=== PATIENT | male | born 1965 | race Caucasian/White ===

== ENCOUNTER 2016-07-10 09:06 | Emergency (ER) | payer MEDICARE ==
[2016-07-10] MEDS ORDERED: Nitroglycerin 2% Ointment 1 INCH/1 GM Packet ONE (09:28)
[2016-07-10] MEDS ORDERED: Ondansetron HCl/PF 4 MG/2 ML Vial ONE (09:28)
[2016-07-10 09:33] LABS: #Lymphocytes 0.6 thou/uL (1.20-3.40); #Monocytes 0.4 thou/uL (0.11-0.59); #Neutrophils 9.6 thou/uL (1.40-6.50); %Basophils 0.4 % (0.0-1.0); %Eosinophils 0.1 % (0.0-10.0); %Lymphocytes 5.6 % (21.0-51.0); %Monocytes 3.5 % (0.0-10.0); %Neutrophils 90.5 % (42.0-75.0); Hemoglobin 14.5 g/dL (14.0-18.0); Mean Corpuscular HGB CONC 33.6 g/dL (32.0-36.0); Mean Corpuscular Hemoglobin 30.3 pg (27.0-31.0); Mean Corpuscular Volume 90.1 fl (80.0-94.0); Mean Platelet Volume 7.3 fL (7.4-10.4); Platelet Count 182 thou/uL (130-400); RBC Distribution Width 14.4 % (11.5-14.5); Red Blood Cell (RBC) Count 4.79 mill/uL (4.70-6.10); White Blood Cell (WBC) Count 10.6 thou/uL (4.8-10.8)
[2016-07-10 09:49] LABS: CKMB 2.2 ng/mL (0-6.6); Troponin I Less than 0.010 ng/mL (< 0.028)
[2016-07-10 09:51] LABS: ALT (SGPT) 29 U/L (0-55); AST (SGOT) 22 U/L (5-34); Albumin 4.6 g/dL (3.5-5.0); Alkaline Phosphatase 70 U/L (40-150); Anion Gap 15 mmol/L (10-20); BUN (Urea Nitrogen) 11 mg/dL (8.4-25.7); Bilirubin, Total 0.5 mg/dL (0.2-1.2); Calc. Creatinine Clearance 0 mL/min (70-130); Calcium 9.4 mg/dL (7.8-10.44); Carbon Dioxide 20 mmol/L (22-29); Chloride 109 mmol/L (98-107); Estimated GFR-MDRD 75; Globulin 2.6 g/dL (2.4-3.5); Glucose 147 mg/dL (70-105); Potassium 3.2 mmol/L (3.5-5.1); Protein, Total 7.2 g/dL (6.0-8.3); Sodium 141 mmol/L (136-145)
--- NOTE | 2016-07-10 09:59 | RAD ---
CHEST TWO VIEW: History: Chest pain. Comparison: 05-02-16 FINDINGS: Heart size is upper limits of normal. There is callus formation along the right posterior 8th rib s uggesting healing fracture. Mild spondylotic changes of the thoracic spine. The aorta is tortuous. IMPRESSION: 1. No acute intrathoracic abnormality. 2. Callus formation along the right posterior 8th rib similar to the CT aortic dissection protocol study 05-02-16. 3. Tortuous aorta. POS: OFF
--- NOTE | 2016-07-10 11:04 | ERRECORD ---
[facility] EMERGENCY RECORD HPI CHEST PAIN CHIEF COMPLAINT: Patient presents for evaluation of chest pain, ongoing. (09:17 ABUS) HISTORIAN: History provided by patient, 51 yr old M with PMH of HTN and BPH, seizures, aneurysm who comes in with reports of SS NR chest discomfort and elevated BP despite taking his medications last night and today. Started at 5-6 am and was rated at 8/10 and now is 6/10. Also reports nausea and 1 episode of vomiting and SOB that is not normal for him. Denies any prior smoking, cardiac stress testing. (09:17 ABUS) LOCATION: Symptoms are localized, most severe in substernal area, No radiation of pain. (09:17 ABUS) QUALITY: Pain is dull in nature, described as pressure-like. (09:17 ABUS) SEVERITY: Currently symptoms are moderate, Current severity of pain rated as 6/10. (09:17 ABUS) TIME COURSE: Sudden onset of symptoms, Symptoms are improving, are constant. (09:17 ABUS) ASSOCIATED WITH: No associated symptoms. (09:17 ABUS) EXACERBATED BY: Patient's condition exacerbated by nothing. (09:17 ABUS) RELIEVED BY: Patient's condition relieved by nothing. (09:17 ABUS) RISK FACTORS: Coronary artery disease risk factors, include hypertension. (09:17 ABUS) HEART SCORE: Patients history is Moderately Suspicious (1), Patients ECG is normal (0), Patients age is greater than 45 and less than 65 (1), Patient has 1 or 2 risk factors (1), Patients Troponin is equal to or less than 1 times the normal limit (0), Total 3. (10:03 ABUS) ROS (09:20 ABUS) CONSTITUTIONAL: Historian denies chills, denies fever. EYES: Negative eye review of systems, Historian denies eye pain, denies eye discharge, denies vision changes. ENT: Negative ears, nose, throat review of systems, Historian denies rhinorrhea, denies sore throat. CARDIOVASCULAR: Negative cardiovascular review of systems, Historian denies chest pain, denies palpitations. RESPIRATORY: Negative respiratory review of systems, Historian denies cough, denies shortness of breath. GI: Negative gastrointestinal review of systems, Historian denies abdominal pain, denies constipation, denies diarrhea, denies nausea, denies vomiting. GENITOURINARY MALE: Negative genitourinary review of systems, Historian denies dysuria, denies hematuria. MUSCULOSKELETAL: Negative musculoskeletal review of systems, Historian denies back pain, denies fall, denies injury, denies neck pain. SKIN: Negative skin review of systems, Historian denies rash, &a-1R&a+25V*p+0X*y5067V*c202B*c15G*c2P*p-0X&a-25V&a+1R Name: Cristino Jefferson : 1965 M51 MedRec: [id number] AcctNum: [id number] Prepared: SatJul 10, 2016 11:30 by Interface Page 1 of 4 pMD [facility] EMERGENCY RECORD denies skin changes. NEUROLOGIC: Negative neurologic review of systems, Historian denies headache. HEMO/LYMPHATIC: Normal hematologic/lymphatic system review, Historian denies abnormal blood clotting. PAST MEDICAL HISTORY (09:23 SFRE) MEDICAL HISTORY: Flu vaccine not up to date, Tetanus immunization up to date, Notes: SEIZURES, BRAIN ANEUrSYM 3 STROKES, Past medical history includes history of hypertension, Notes: SEIZURE..CV x 12 yrs, Past medical history includes history of hypertension, which has been treated. UNABLE TO UPDATE SINCE PATIENT INTUBATED. VERIFIED 05/02/16. VERIFIED 05/09/16. VERIFIED 07/10/16. MALE SURGICAL HISTORY: 4 LEFT KNEE SURGERIES BACK SURGERY. bilateral SHOULDER SURGERY. VERIFIED. PSYCHIATRIC HISTORY: No previous psychiatric history, No previous psychiatric history, No previous psychiatric history, No previous psychiatric history. SOCIAL HISTORY: Patient drinks socially, every week, Patient denies drug use, Patient currently uses tobacco, chews tobacco, Patient drinks socially, Patient denies drug use, Patient has no smoking history, Patient currently uses tobacco, Chews tobacco, Patient drinks socially, Patient denies drug use. No changes 6. KNOWN ALLERGIES No Known Allergies (Unconfirmed) No Known Drug Allergies: Source: Patient CURRENT MEDICATIONS amlodipine-benazepril: CAPSULE : Strength - 10 mg-20 mg : ORAL Patient Dose: 1 cap(s) Oral once a day. (09:38 SFRE) topiramate: TABLET : Strength - 200 mg : ORAL Patient Dose: 1 tab(s) Oral 2 times a day. (09:38 SFRE) hydrALAZINE: TABLET : Strength - 25 mg : ORAL Patient Dose: 25 mg Oral 2 times a day. (09:38 SFRE) Flomax: CAPSULE, EXT RELEASE 24 HR : Strength - 0.4 mg : ORAL Patient Dose: 0.4 mg Oral once a day (in the morning). (09:38 SFRE) finasteride: TABLET : Strength - 5 mg : ORAL Patient Dose: 5 mg Oral once a day. (09:39 SFRE) VITAL SIGNS VITAL SIGNS: BP: 149/109, Pulse: 83, Resp: 18, Temp: 97.8 &a-1R&a+25V*p+0X*q7673G*c202B*c15G*c2P*p-0X&a-25V&a+1R Name: Cristino Jefferson : 1965 M51 MedRec: [id number] AcctNum: [id number] Prepared: SatJul 10, 2016 11:30 by Interface Page 2 of 4 pMD [facility] EMERGENCY RECORD (Tympanic), Pain: 6, O2 sat: 98 on Room Air, Time: 07/10/2016 09:15. (09:15 SFRE) BP: 118/86, Pulse: 104, Resp: 18, Temp: 97.8 (Tympanic), Pain: 3, O2 sat: 97 on Room Air, Time: 07/10/2016 11:00. (11:00 SFRE) PHYSICAL EXAM (09:20 ABUS) CONSTITUTIONAL: Vital Signs Reviewed, Patient afebrile, Pulse normal, Blood pressure, hypertensive, Respiratory rate normal, Patient appears non toxic, Patient appears, in mild pain distress, Patient alert and oriented to person, place and time, . HEAD: Head exam normal, Head exam included findings of head atraumatic, normocephalic. EYES: Eye exam normal, Eye exam included findings of eyelids normal to inspection, Pupils equally round and reactive to light, Extraocular muscles intact, no nystagmus. ENT: ENT exam normal, Ear exam normal, external ear normal, tympanic membranes normal, no bleeding, Pharynx exam normal, Uvula exam normal, Tonsil exam normal, Mouth exam normal, mucous membranes moist, teeth normal. NECK: Neck exam normal, Neck exam included findings of normal range of motion, Trachea midline, no meningeal signs, no cervical adenopathy, no tenderness. RESPIRATORY CHEST: Respiratory and chest exam normal, Respiratory exam included findings of no respiratory distress, Breath sounds clear. CARDIOVASCULAR: Cardiovascular assessment normal, Cardiovascular exam included findings of heart rate regular rate and rhythm, Heart sounds normal. ABDOMEN MALE: Abdominal exam included findings of abdomen nontender, Bowel sounds normal, no distension, no mass, no pulsatile masses, no peritoneal signs, no rigidity, no guarding, no rebound, Rovsing's sign absent. BACK: Back exam normal, Back exam included findings of normal inspection, range of motion normal, no tenderness. UPPER EXTREMITY: Upper extremity exam normal, Upper extremity exam included findings of inspection normal, Range of motion normal, Motor strength normal, Sensation intact, Radial pulse normal. LOWER EXTREMITY: Lower extremity exam normal, Lower extremity exam included findings of inspection normal, Range of motion normal, Motor strength normal, Sensation intact, Posterior tibial pulse normal, Pedal pulse normal. NEURO: Neuro exam normal, Neuro exam findings include patient oriented to person, place and time, Speech normal, Gait normal. SKIN: Skin exam normal, Skin exam included findings of skin warm, dry, and normal in color, no rash. PSYCHIATRIC: Psychiatric exam normal, Normal affect. RADIOLOGYINTERPRETATION (09:51 ABUS) CHEST: Chest films negative, no infiltrates, no pneumothorax, no &a-1R&a+25V*p+0X*t1204C*c202B*c15G*c2P*p-0X&a-25V&a+1R Name: Cristino Jefferson : 1965 M51 MedRec: [id number] AcctNum: [id number] Prepared: SatJul 10, 2016 11:30 by Interface Page 3 of 4 pMD [facility] EMERGENCY RECORD hemothorax, no masses, no cardiomegaly, no congestive heart failure, no effusion, no free air. 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 MEDICATION ADMINISTRATION SUMMARY Drug Name: aspirin oral, Dose Ordered: 324 mg, Route: Oral, Status: Given, Time: 09:36 07/10/2016, Drug Name: Nitro-Bid transdermal, Dose Ordered: 1 inch, Route: Topical, Status: Given, Time: 09:36 07/10/2016, Drug Name: Zofran intravenous, Dose Ordered: 4 mg, Route: IV Push, Status: Given, Time: 09:35 07/10/2016, Detailed record available in Medication Service section. DOCTOR NOTES (09:21 ABUS) TEXT: 51 yr old M with PMH of HTN and BPH, seizures, aneurysm who comes in with reports of SS NR chest discomfort and elevated BP despite taking his medications last night and today. EXAM: Looks mildly uncomfortable. DDX: Acute Coronary Syndrome, Unstable Angina, NSTEMI, Pericarditis, Myocarditis, Pulmonary Embolism, Musculoskeletal Chest Wall Pain, Pleuritis. PLAN: IV, IV Fluids, CBC, CMP, BNP, Troponins, Aspirin, NTG, Antiemetics, ECG, CXR, Analgesics as needed ECG: NSR without ischemic changes IMAGING: CXR Nml UPDATE/REASSESSMENT: Final Dispo: admission for ACS r/o and risk stratification. report called to [facility] and Dr Ji accepted. Level of Complexity / Medical Decision Making: Moderate High. PROBLEM LIST No recorded problems DIAGNOSIS (10:53 ABUS) FINAL: PRIMARY: Chest pain. PRESCRIPTION No recorded prescriptions DISPOSITION PATIENT: Disposition Type: Transfer, Disposition: Transfer to [facility], Disposition Transport: Ambulance, Condition: Fair. (10:53 ABUS) Patient left the department. (11:25 SFRE) Velazquez: ABUS=MD Bhumika, Jj SFRE=OLIVA Gamino, Annelise &a-1R&a+25V*p+0X*y4773W*c202B*c15G*c2P*p-0X&a-25V&a+1R Name: RaymondzeeCristino camp Get : 1965 M51 MedRec: [id number] AcctNum: [id number] Prepared: Herminio Jul 10, 2016 11:30 by Interface Page 4 of 4 pMD MTDD
--- NOTE | 2016-07-10 11:09 | PICIS ---
[facility] EMERGENCY RECORD COMMUNICATIONS (10:51 AWAT) COMMUNICATIONS: Notes: Dr Morse at [facility] ER accepts pt for transfer at this time. TRIAGE (SatJul 10, 2016 09:12 SFRE) PATIENT: NAME: Cristino Jefferson, AGE: 51, GENDER: male, : [facility] 1965, TIME OF GREET: SatJul 10, 2016 09:07, PREFERRED LANGUAGE: Trinidadian, ETHNICITY: Not or , ECODE BILLING MAP: [facility], SSN: [id number], Zip Code: [address], KG WEIGHT: 86.18, PHONE: CELL, , , PERSON ID: [id number]. (SatJul 10, 2016 09:12 SFRE) COMPLAINT: CHEST PAIN,NAUSEA. (SatJul 10, 2016 09:12 SFRE) ADMISSION: URGENCY: 3 Urgent, ADMISSION SOURCE: Home, TRANSPORT: Walk-in, BED: TRIAGE. (SatJul 10, 2016 09:12 SFRE) ASSESSMENT: Symptoms began 07/10/2016 0500. (09:23 SFRE) PAIN: Patient complains of pain described as, pressure, on a scale 0-10 patient rates pain as 6, Location SUB STERNAL, Pain is constant, No aggravating factors, No relieving factors. (09:23 SFRE) IMMUNIZATIONS: Flu vaccine not up to date. (09:23 SFRE) SIRS SCORING: Heart Rate 55-109 (0), Temp range 96.8-101.1 (0), respiratory rate 12-24 (0), Mental Status altered: no (0). (09:23 SFRE) TRIAGE SCREENING: Patient denies suicidal ideation, Patient denies presence of domestic violence. (09:23 SFRE) PROVIDERS: TRIAGE NURSE: Annelise Gamino RN. (SatJul 10, 2016 09:12 SFRE) PREVIOUS VISIT ALLERGIES: No Known Drug Allergies. (SatJul 10, 2016 09:12 SFRE) No Known Drug Allergies. (09:23 SFRE) KNOWN ALLERGIES No Known Allergies (Unconfirmed) No Known Drug Allergies: Source: Patient CURRENT MEDICATIONS amlodipine-benazepril: CAPSULE : Strength - 10 mg-20 mg : ORAL Patient Dose: 1 cap(s) Oral once a day. (09:38 SFRE) topiramate: TABLET : Strength - 200 mg : ORAL Patient Dose: 1 tab(s) Oral 2 times a day. (:38 SFRE) hydrALAZINE: TABLET : Strength - 25 mg : ORAL Patient Dose: 25 mg Oral 2 times a day. (09:38 SFRE) Flomax: CAPSULE, EXT RELEASE 24 HR : Strength - 0.4 mg : ORAL Patient Dose: 0.4 mg Oral once a day (in the morning). (09:38 SFRE) &a-1R&a+25V*p+0X*[id number]*c202B*c15G*c2P*p-0X&a-25V&a+1R Name: Cristino Jefferson Get : 1965 M51 MedRec: [id number] AcctNum: [id number] Prepared: SatJul 10, 2016 11:36 by Interface Page 1 of 10 pMD [facility] EMERGENCY RECORD finasteride: TABLET : Strength - 5 mg : ORAL Patient Dose: 5 mg Oral once a day. (09:39 SFRE) VITAL SIGNS VITAL SIGNS: BP: 149/109, Pulse: 83, Resp: 18, Temp: 97.8 (Tympanic), Pain: 6, O2 sat: 98 on Room Air, Time: 07/10/2016 09:15. (09:15 SFRE) BP: 118/86, Pulse: 104, Resp: 18, Temp: 97.8 (Tympanic), Pain: 3, O2 sat: 97 on Room Air, Time: 07/10/2016 11:00. (11:00 SFRE) NURSING PROCEDURE: APPRENTICE PLUMBER (09:12 SFRE) APPRENTICE PLUMBER: Cardiac monitoring indicated for complaint of chest pain, Patient placed on pvc monitor, Heart rate: 83, showing normal sinus rhythm, without ectopy, with no ST segment changes, Patient placed on non-invasive blood pressure monitor, Patient placed on continuous pulse oximetry, Adult/pediatric oxisensor applied, Oxygen saturation 98%. NURSING PROCEDURE: EKG CHART (09:18 SFRE) EKG: EKG indicated for complaint of chest pain, 12 lead EKG performed on the left chest, done by OLIVA SALEH, first EKG. FOLLOW-UP: After procedure, EKG for interpretation given to Dr. ZAMBRANO. NURSING PROCEDURE: IV (:18 SFRE) IV SITE 1: IV therapy indicated for hydration, IV therapy indicated for medication administration, IV established, to the left forearm, using a 20 gauge catheter, in one attempt, Saline lock established, Flushed with normal saline (mls): 5CC, Labs drawn at time of placement, labeled in the presence of the patient and sent to lab. NURSING PROCEDURE: NURSE NOTES (:19 SFRE) NURSES NOTES: Notes: RESTING QUIETLY WITH NAD. NURSING PROCEDURE: TRANSFER (:14 AWAT) TRANSFER: Reason for transfer need for specialized care, Diagnosis: CHEST PAIN, R/O ACS, Accepting institution: [facility] ER, Accepting physician: DR MORSE, Referring physician: DR ZAMBRANO, Transported by urgent ambulance, accompanied by emergency medical services personnel, Report called to receiving facility, [facility], Provided opportunity to answer questions, Summary of Care printed, Copy of patient record prepared for receiving facility, Status of patient's valuables documented on chart, Patient consent for transfer signed, Family member contacted, MOTHER- SHE TOOK HIS MEDS HOME. BELONGINGS: Belongings remain with patient, Valuables remain with patient, Valuables sent home with family, name: MEDS WITH HIS MOM, Notes: CLOTHES WITH PT, MEDS WITH HIS MOM. EQUIPMENT WITH PATIENT: Equipment with patient at time of &a-1R&a+25V*p+0X*y5984H*c202B*c15G*c2P*p-0X&a-25V&a+1R Name: Cristino Jefferson : 1965 M51 MedRec: [id number] AcctNum: [id number] Prepared: SatJul 10, 2016 11:36 by Interface Page 2 of 10 pMD [facility] EMERGENCY RECORD transfer pvc monitor, Saline lock intact and patent at time of transfer. NOTES: Emotional support needed and given, Patient tolerated procedure well. SAFETY: Side rails up, Cart/Stretcher in lowest position, Family at bedside, Call light within reach, Hospital ID band on, Physician notified of above findings. VITAL SIGNS: Time: 1114. ORDER DETAILS Order Name: B type Natriuretic Peptide, Status: Active, Time: :16 07/10/2016, User: ABUS, - Ordered for: MD Zambrano Anthony, - Entered by: MD Zambrano Anthony - Tue Jul 10, 2016 09:16, - Quantity: 1, Order Name: APPRENTICE PLUMBER ED, Status: Done, Time: 09:20 07/10/2016, User: SFRE, - Ordered for: MD Zambrano Anthony, - Entered by: MD Zambrano Anthony - Tue Jul 10, 2016 09:16, - Quantity: 1, Order Name: Cardiac Profile w/CKMB & Troponin - I, Status: Active, Time: 09:16 07/10/2016, User: ABUS, - Ordered for: MD Zambrano Anthony, - Entered by: MD Zambrano Anthony - Tue Jul 10, 2016 09:16, - Quantity: 1, Order Name: CBC with Differential, Status: Active, Time: 09:16 07/10/2016, User: ABUS, - Ordered for: MD Zambrano Anthony, - Entered by: MD Zambrano Anthony - Tue Jul 10, 2016 09:16, - Quantity: 1, Order Name: Comprehensive Metabolic Panel, Status: Active, Time: 09:16 07/10/2016, User: ABUS, - Ordered for: MD Zambrano Anthony, - Entered by: MD Zambrano Anthony - Tue Jul 10, 2016 09:16, - Quantity: 1, Order Name: EKG 12 Lead in Emergency Room, Status: Active, Time: 09:16 07/10/2016, User: ABUS, - Ordered for: MD Zambrano Anthony, - Entered by: MD Zambrano Anthony - Tue Jul 10, 2016 09:16, - Quantity: 1, Order Name: Magnesium, Status: Active, Time: 10:03 07/10/2016, User: ABUS, - Ordered for: MD Zambrano Anthony, - Entered by: MD Zambrano Anthony - Tue Jul 10, 2016 10:03, - Quantity: 1, Order Name: PTT, Status: Active, Time: 09:16 07/10/2016, User: ABUS, - Ordered for: MD Zambarno Anthony, - Entered by: MD Zambrano Anthony - Tue Jul 10, 2016 09:16, - Quantity: 1, &a-1R&a+25V*p+0X*v5095C*c202B*c15G*c2P*p-0X&a-25V&a+1R Name: Cristino Jefferson : 1965 M51 MedRec: [id number] AcctNum: [id number] Prepared: SatJul 10, 2016 11:36 by Interface Page 3 of 10 pMD [facility] EMERGENCY RECORD Order Name: SALINE LOCK, Status: Done, Time: 09:20 07/10/2016, User: AGUSTINA, - Ordered for: MD Zambrano Anthony, - Entered by: MD Zambrano Anthony - dianna Jul 10, 2016 09:16, - Quantity: 1, Order Name: XR Chest Pa & Lat STANDARD, Status: Active, Time: 09:16 07/10/2016, User: ARRON, - Ordered for: MD Zambrano Anthony, - Entered by: MD Zambrano Anthony - dianna Jul 10, 2016 09:16, - Quantity: 1. MEDICATION ADMINISTRATION SUMMARY Drug Name: aspirin oral, Dose Ordered: 324 mg, Route: Oral, Status: Given, Time: 09:36 07/10/2016, Drug Name: Nitro-Bid transdermal, Dose Ordered: 1 inch, Route: Topical, Status: Given, Time: 09:36 07/10/2016, Drug Name: Zofran intravenous, Dose Ordered: 4 mg, Route: IV Push, Status: Given, Time: 09:35 07/10/2016, Detailed record available in Medication Service section. MEDICATION SERVICE aspirin oral: Order: aspirin oral (aspirin) - Dose: 324 mg : Oral Schedule: Now Ordered by: Jj Zambrano MD Entered by: Jj Zambrano MD SatJul 10, 2016 09:16 , Acknowledged by: Annelise Gamino RN SatJul 10, 2016 09:24 Documented as given by: Annelise Gamino RN SatJul 10, 2016 09:36 Patient, Medication, Dose, Route and Time verified prior to administration. Amount given: 324MG, Site: Medication administered P.O., Patient appears Awake and alert- acceptable, Correct patient, time, route, dose and medication confirmed prior to administration, Patient advised of actions and side-effects prior to administration, Allergies confirmed and medications reviewed prior to administration, Patient in position of comfort, Side rails up, Cart in lowest position. Nitro-Bid transdermal: Order: Nitro-Bid transdermal (nitroglycerin) - Dose: 1 inch : Topical Schedule: Now Ordered by: Jj Zambrano MD Entered by: Jj Zambrano MD SatJul 10, 2016 09:16 , Acknowledged by: Annelise Gamino RN SatJul 10, 2016 09:24 Documented as given by: Annelise Gamino RN SatJul 10, 2016 09:36 Patient, Medication, Dose, Route and Time verified prior to administration. Amount given: 1 INCH, Skin cleansed prior to administration, Shaving required prior to administration, Correct patient, time, route, dose and medication confirmed prior to administration, Patient advised of &a-1R&a+25V*p+0X*q6612A*c202B*c15G*c2P*p-0X&a-25V&a+1R Name: Cristino Jefferson : 1965 M51 MedRec: [id number] AcctNum: [id number] Prepared: SatJul 10, 2016 11:36 by Interface Page 4 of 10 pMD [facility] EMERGENCY RECORD actions and side-effects prior to administration, Allergies confirmed and medications reviewed prior to administration, Advised not to ambulate without assistance, Patient in position of comfort, Side rails up, Cart in lowest position. Zofran intravenous: Order: Zofran intravenous (ondansetron HCl) - Dose: 4 mg : IV Push Schedule: Now Ordered by: Jj Zambrano MD Entered by: Jj Zambrano MD SatJul 10, 2016 09:17 , Acknowledged by: Annelise Gamino RN SatJul 10, 2016 09:24 Documented as given by: Annelise Gamino RN SatJul 10, 2016 09:35 Patient, Medication, Dose, Route and Time verified prior to administration. Amount given: 4MG, IV SITE #1 IVP, initial medication, Slowly, Awake and alert- acceptable, Catheter placement confirmed via flush prior to administration, IV site without signs or symptoms of infiltration during medication administration, No swelling during administration, No drainage during administration, IV flushed after administration, Correct patient, time, route, dose and medication confirmed prior to administration, Patient advised of actions and side-effects prior to administration, Allergies confirmed and medications reviewed prior to administration, Patient in position of comfort, Side rails up, Cart in lowest position, Family at bedside. HPI CHEST PAIN CHIEF COMPLAINT: Patient presents for evaluation of chest pain, ongoing. (09:17 ABUS) HISTORIAN: History provided by patient, 51 yr old M with PMH of HTN and BPH, seizures, aneurysm who comes in with reports of SS NR chest discomfort and elevated BP despite taking his medications last night and today. Started at 5-6 am and was rated at 8/10 and now is 6/10. Also reports nausea and 1 episode of vomiting and SOB that is not normal for him. Denies any prior smoking, cardiac stress testing. (09:17 ABUS) LOCATION: Symptoms are localized, most severe in substernal area, No radiation of pain. (09:17 ABUS) QUALITY: Pain is dull in nature, described as pressure-like. (09:17 ABUS) SEVERITY: Currently symptoms are moderate, Current severity of pain rated as 6/10. (09:17 ABUS) TIME COURSE: Sudden onset of symptoms, Symptoms are improving, are constant. (09:17 ABUS) ASSOCIATED WITH: No associated symptoms. (09:17 ABUS) EXACERBATED BY: Patient's condition exacerbated by nothing. (09:17 ABUS) RELIEVED BY: Patient's condition relieved by nothing. (09:17 ABUS) RISK FACTORS: Coronary artery disease risk factors, include hypertension. (09:17 ABUS) HEART SCORE: Patients history is Moderately Suspicious &a-1R&a+25V*p+0X*l2750F*c202B*c15G*c2P*p-0X&a-25V&a+1R Name: Cristino Jefferson : 1965 M51 MedRec: [id number] AcctNum: [id number] Prepared: SatJul 10, 2016 11:36 by Interface Page 5 of 10 pMD [facility] EMERGENCY RECORD (1), Patients ECG is normal (0), Patients age is greater than 45 and less than 65 (1), Patient has 1 or 2 risk factors (1), Patients Troponin is equal to or less than 1 times the normal limit (0), Total 3. (10:03 ABUS) ROS (09:20 ABUS) CONSTITUTIONAL: Historian denies chills, denies fever. EYES: Negative eye review of systems, Historian denies eye pain, denies eye discharge, denies vision changes. ENT: Negative ears, nose, throat review of systems, Historian denies rhinorrhea, denies sore throat. CARDIOVASCULAR: Negative cardiovascular review of systems, Historian denies chest pain, denies palpitations. RESPIRATORY: Negative respiratory review of systems, Historian denies cough, denies shortness of breath. GI: Negative gastrointestinal review of systems, Historian denies abdominal pain, denies constipation, denies diarrhea, denies nausea, denies vomiting. GENITOURINARY MALE: Negative genitourinary review of systems, Historian denies dysuria, denies hematuria. MUSCULOSKELETAL: Negative musculoskeletal review of systems, Historian denies back pain, denies fall, denies injury, denies neck pain. SKIN: Negative skin review of systems, Historian denies rash, denies skin changes. NEUROLOGIC: Negative neurologic review of systems, Historian denies headache. HEMO/LYMPHATIC: Normal hematologic/lymphatic system review, Historian denies abnormal blood clotting. PAST MEDICAL HISTORY (09:23 SFRE) MEDICAL HISTORY: Flu vaccine not up to date, Tetanus immunization up to date, Notes: SEIZURES, BRAIN ANEUrSYM 3 STROKES, Past medical history includes history of hypertension, Notes: SEIZURE..CV x 12 yrs, Past medical history includes history of hypertension, which has been treated. UNABLE TO UPDATE SINCE PATIENT INTUBATED. VERIFIED 05/02/16. VERIFIED 05/09/16. VERIFIED 07/10/16. MALE SURGICAL HISTORY: 4 LEFT KNEE SURGERIES BACK SURGERY. bilateral SHOULDER SURGERY. VERIFIED. PSYCHIATRIC HISTORY: No previous psychiatric history, No previous psychiatric history, No previous psychiatric history, No previous psychiatric history. SOCIAL HISTORY: Patient drinks socially, every week, Patient denies drug use, Patient currently uses tobacco, chews tobacco, Patient drinks socially, Patient denies drug use, Patient has no smoking history, Patient currently uses tobacco, Chews tobacco, Patient drinks socially, Patient denies drug use. No changes 06/01/q16. &a-1R&a+25V*p+0X*h1082W*c202B*c15G*c2P*p-0X&a-25V&a+1R Name: Cristino Jefferson : 1965 M51 MedRec: [id number] AcctNum: [id number] Prepared: Herminio Jul 10, 2016 11:36 by Interface Page 6 of 10 pMD [facility] EMERGENCY RECORD PHYSICAL EXAM (09:20 ABUS) CONSTITUTIONAL: Vital Signs Reviewed, Patient afebrile, Pulse normal, Blood pressure, hypertensive, Respiratory rate normal, Patient appears non toxic, Patient appears, in mild pain distress, Patient alert and oriented to person, place and time, . HEAD: Head exam normal, Head exam included findings of head atraumatic, normocephalic. EYES: Eye exam normal, Eye exam included findings of eyelids normal to inspection, Pupils equally round and reactive to light, Extraocular muscles intact, no nystagmus. ENT: ENT exam normal, Ear exam normal, external ear normal, tympanic membranes normal, no bleeding, Pharynx exam normal, Uvula exam normal, Tonsil exam normal, Mouth exam normal, mucous membranes moist, teeth normal. NECK: Neck exam normal, Neck exam included findings of normal range of motion, Trachea midline, no meningeal signs, no cervical adenopathy, no tenderness. RESPIRATORY CHEST: Respiratory and chest exam normal, Respiratory exam included findings of no respiratory distress, Breath sounds clear. CARDIOVASCULAR: Cardiovascular assessment normal, Cardiovascular exam included findings of heart rate regular rate and rhythm, Heart sounds normal. ABDOMEN MALE: Abdominal exam included findings of abdomen nontender, Bowel sounds normal, no distension, no mass, no pulsatile masses, no peritoneal signs, no rigidity, no guarding, no rebound, Rovsing's sign absent. BACK: Back exam normal, Back exam included findings of normal inspection, range of motion normal, no tenderness. UPPER EXTREMITY: Upper extremity exam normal, Upper extremity exam included findings of inspection normal, Range of motion normal, Motor strength normal, Sensation intact, Radial pulse normal. LOWER EXTREMITY: Lower extremity exam normal, Lower extremity exam included findings of inspection normal, Range of motion normal, Motor strength normal, Sensation intact, Posterior tibial pulse normal, Pedal pulse normal. NEURO: Neuro exam normal, Neuro exam findings include patient oriented to person, place and time, Speech normal, Gait normal. SKIN: Skin exam normal, Skin exam included findings of skin warm, dry, and normal in color, no rash. PSYCHIATRIC: Psychiatric exam normal, Normal affect. EVENTS TRANSFER: Triage to Emergency Triage. (SatJul 10, 2016 09:12 SFRE) Emergency Triage to Main ED -01. (09:35 JPAR) Removed from Emergency Main ED -01. (11:25 SFRE) RADIOLOGYINTERPRETATION (09:51 ABUS) &a-1R&a+25V*p+0X*n6005D*c202B*c15G*c2P*p-0X&a-25V&a+1R Name: Cristino Jefferson : 1965 M51 MedRec: [id number] AcctNum: [id number] Prepared: SatJul 10, 2016 11:36 by Interface Page 7 of 10 pMD [facility] EMERGENCY RECORD CHEST: Chest films negative, no infiltrates, no pneumothorax, no hemothorax, no masses, no cardiomegaly, no congestive heart failure, no effusion, no free air. 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 DOCTOR NOTES (09:21 ABUS) TEXT: 51 yr old M with PMH of HTN and BPH, seizures, aneurysm who comes in with reports of SS NR chest discomfort and elevated BP despite taking his medications last night and today. EXAM: Looks mildly uncomfortable. DDX: Acute Coronary Syndrome, Unstable Angina, NSTEMI, Pericarditis, Myocarditis, Pulmonary Embolism, Musculoskeletal Chest Wall Pain, Pleuritis. PLAN: IV, IV Fluids, CBC, CMP, BNP, Troponins, Aspirin, NTG, Antiemetics, ECG, CXR, Analgesics as needed ECG: NSR without ischemic changes IMAGING: CXR Nml UPDATE/REASSESSMENT: Final Dispo: admission for ACS r/o and risk stratification. report called to [facility] and Dr Ji accepted. Level of Complexity / Medical Decision Making: Moderate High. PROBLEM LIST No recorded problems DIAGNOSIS (10:53 ABUS) FINAL: PRIMARY: Chest pain. DISPOSITION PATIENT: Disposition Type: Transfer, Disposition: Transfer to [facility], Disposition Transport: Ambulance, Condition: Fair. (10:53 ABUS) Patient left the department. (11:25 SFRE) PRESCRIPTION No recorded prescriptions IMAGING *EKG: Image captured from scanner. (09:42 AWAT) *MEMORANDUM OF TRANSFER: Image captured from scanner. (10:57 AWAT) EMS TRANSPORT ORDERS: Image captured from scanner. (10:57 AWAT) CONSENTS: Image captured from scanner. (10:57 AWAT) TRANSFER WORKSHEET: Image captured from scanner. (11:15 AWAT) Page 2 added. Image captured from scanner. (11:16 AWAT) *SUPPLY CHARGE SHEET: Image captured from scanner. (11:24 AWAT) VITALS: Image captured from scanner. (11:27 SFRE) ADMIN (10:53 ABUS) &a-1R&a+25V*p+0X*z7527V*c202B*c15G*c2P*p-0X&a-25V&a+1R Name: Cristino Jefferson : 1965 M51 MedRec: [id number] AcctNum: [id number] Prepared: SatJul 10, 2016 11:36 by Interface Page 8 of 10 pMD [facility] EMERGENCY RECORD DIGITAL SIGNATURE: MD Zambrano Anthony. RESULTS LABORATORY: CBC with Differential Collection DT: SatJul 10, 2016 09:28, White Blood Cell (WBC) Count 10.6 thou/uL, Range (4.8-10.8), Red Blood Cell (RBC) Count 4.79 mill/uL, Range (4.70-6.10), Hemoglobin 14.5 g/dL, Range (14.0-18.0), Hematocrit 43.2 %, Range (42.0-52.0), Mean Corpuscular Volume 90.1 fl, Range (80.0-94.0), Mean Corpuscular Hemoglobin 30.3 pg, Range (27.0-31.0), Mean Corpuscular HGB CONC 33.6 g/dL, Range (32.0-36.0), RBC Distribution Width 14.4 %, Range (11.5-14.5), Platelet Count 182 thou/uL, Range (130-400), *Mean Platelet Volume 7.3 - L fL, Range (7.4-10.4), *%Neutrophils 90.5 - H %, Range (42.0-75.0), *%Lymphocytes 5.6 - L %, Range (21.0-51.0), %Monocytes 3.5 %, Range (0.0-10.0), %Eosinophils 0.1 %, Range (0.0-10.0), %Basophils 0.4 %, Range (0.0-1.0), *#Neutrophils 9.6 - H thou/uL, Range (1.40-6.50), *#Lymphocytes 0.6 - L thou/uL, Range (1.20-3.40), #Monocytes 0.4 thou/uL, Range (0.11-0.59), #Eosinphils 0.0 thou/uL, Range (0.0-0.7), #Basophils 0.0 thou/uL, Range (0.0-0.2). (09:37 [facility]) B type Natriuretic Peptide Collection DT: SatJul 10, 2016 09:28, B type Natriuretic Peptide 18.3 pg/mL, Range (0-100). (10:03 ABUS) Cardiac Profile w/CKMB & TropI Collection DT: SatJul 10, 2016 09:28, CKMB 2.2 ng/mL, Range (0-6.6), Troponin I Less than 0.010 ng/mL, Range (< 0.028), Reference Range , 0.00 - 0.028 ng/mL Negative 0.029 - 0.29 ng/mL , Indeterminate Greater or Equal to 0.3 ng/mL Strongly suggests [place] , . (10:03 ABUS) Comprehensive Metabolic Panel Collection DT: SatJul 10, 2016 09:28, Sodium 141 mmol/L, Range (136-145), *Potassium 3.2 - L mmol/L, Range (3.5-5.1), *Chloride 109 - H mmol/L, Range (98-107), *Carbon Dioxide 20 - L mmol/L, Range (22-29), Anion Gap 15 mmol/L, Range (10-20), BUN (Urea Nitrogen) 11 mg/dL, Range (8.4-25.7), Creatinine 1.04 mg/dL, Range (0.7-1.3), Estimated GFR-MDRD 75 , Reference Range for Estimated GFR: Greater than 90, mL/min/1.73 m2 NOTE: The MDRD equation has not been validated for use, with the elderly (over 70 years of age), women, patients &a-1R&a+25V*p+0X*q7634K*c202B*c15G*c2P*p-0X&a-25V&a+1R Name: Cristino Jefferson : 1965 M51 MedRec: [id number] AcctNum: [id number] Prepared: SatJul 10, 2016 11:36 by Interface Page 9 of 10 pMD [facility] EMERGENCY RECORD with, serious comorbid condition or persons with extremes of body size, muscle, mass, or nutritional status. , *Glucose 147 - H mg/dL, Range (70-105), Calcium 9.4 mg/dL, Range (7.8-10.44), Bilirubin, Total 0.5 mg/dL, Range (0.2-1.2), Protein, Total 7.2 g/dL, Range (6.0-8.3), NOTE: Plasma values are generally 0.3 to 0.5 g/dL higher than serum values, due to the presence of fibrinogen. , Albumin 4.6 g/dL, Range (3.5-5.0), Globulin 2.6 g/dL, Range (2.4-3.5), Alb/Glob Ratio 1.8 g/dL, Range (1.2-2.2), Alkaline Phosphatase 70 U/L, Range (40-150), AST (SGOT) 22 U/L, Range (5-34), ALT (SGPT) 29 U/L, Range (0-55). (10:03 ABUS) PTT Collection DT: SatJul 10, 2016 09:28, PTT 28.1 SEC, Range (22.9-36.1). (10:03 ABUS) Magnesium Collection DT: SatJul 10, 2016 10:21, Magnesium 2.1 mg/dL, Range (1.6-2.6). (11:01 SOPHIA) Velazquez: ARRON=MD Bhumika, Jj CORTES=OLIVA Harvey, Bg LEI=CHRISTOPHER Schaffer Julia SFRE=OLIVA Gamino, Annelise &a-1R&a+25V*p+0X*e5032J*c202B*c15G*c2P*p-0X&a-25V&a+1R Name: Cristino Jefferson : 1965 M51 MedRec: [id number] AcctNum: [id number] Prepared: Herminio Jul 10, 2016 11:36 by Interface Page 10 of 10 pMD MTDD
== END 2016-07-10 11:14 | disposition short-term general hospital (02) ==
LOC: MADERS 09:06
DX: R07.2 Precordial pain (principal); I10 Essential (primary) hypertension; F17.220 Nicotine dependence, chewing tobacco, uncomplicated; Z79.899 Other long term (current) drug therapy
CPT/HCPCS: 36415; 71020; 80053; 82553; 83735; 83880; 84484; 85025; 85730; 93005; 96374; J2405

== ENCOUNTER 2016-10-16 14:35 | Outpatient (CLI) | payer MEDICARE ==
[2016-10-16 15:11] LABS: Hemoglobin A1c 4.9 % (4.0-6.0)
[2016-10-16 15:27] LABS: ALT (SGPT) 54 U/L (8-55); AST (SGOT) 27 U/L (5-34); Albumin 4.1 g/dL (3.5-5.0); Alkaline Phosphatase 83 U/L (40-150); Anion Gap 12 mmol/L (10-20); Bilirubin, Total 0.4 mg/dL (0.2-1.2); Calc. Creatinine Clearance 0 mL/min (70-130); Calcium 9.1 mg/dL (7.8-10.44); Carbon Dioxide 20 mmol/L (22-29); Chloride 112 mmol/L (98-107); Estimated GFR-MDRD 60; Globulin 2.7 g/dL (2.4-3.5); Glucose 98 mg/dL (70-105); Protein, Total 6.8 g/dL (6.0-8.3); Sodium 140 mmol/L (136-145)
[2016-10-16 15:34] LABS: BUN (Urea Nitrogen) 15 mg/dL (8.4-25.7)
[2016-10-16 15:45] LABS: Free T4 (Free Thyroxine) 0.77 ng/dL (0.70-1.48); Thyroid Stimulating Hormone 0.5855 uIU/mL (0.35-4.94)
== END 2016-10-16 14:36 ==
LOC: MADLABBHPM 14:35
PROVIDERS: ATTEND Family Medicine
DX: Z13.1 Encounter for screening for diabetes mellitus (principal)
CPT/HCPCS: 36415; 80053; 83036; 84439; 84443

== ENCOUNTER 2018-01-11 11:44 | Emergency (ER) | payer MEDICARE ==
[2018-01-11] MEDS ORDERED: Lorazepam 2 MG/ML VIAL ONE (12:09)
[2018-01-11 12:10] LABS: #Lymphocytes 0.4 thou/uL (1.20-3.40); #Monocytes 0.5 thou/uL (0.11-0.59); #Neutrophils 9.4 thou/uL (1.40-6.50); %Basophils 0.3 % (0.0-1.0); %Lymphocytes 3.8 % (21.0-51.0); %Neutrophils 90.9 % (42.0-75.0); Hemoglobin 13.8 g/dL (14.0-18.0); Mean Corpuscular HGB CONC 32.6 g/dL (32.0-36.0); Mean Corpuscular Hemoglobin 27.7 pg (27.0-31.0); Mean Platelet Volume 6.8 fL (7.4-10.4); Platelet Count 210 thou/uL (130-400); RBC Distribution Width 14.5 % (11.5-14.5); Red Blood Cell (RBC) Count 4.97 mill/uL (4.70-6.10); White Blood Cell (WBC) Count 10.4 thou/uL (4.8-10.8)
[2018-01-11] MEDS ORDERED: Nitroglycerin 2% Ointment 1 INCH/1 GM Packet ONE (12:10)
[2018-01-11] MEDS ORDERED: Morphine 4 MG/ML VIAL ONE ×2 (12:10→13:18)
[2018-01-11 12:28] LABS: Anion Gap 18 mmol/L (10-20); BUN (Urea Nitrogen) 17 mg/dL (8.4-25.7); Calc. Creatinine Clearance 0 mL/min (70-130); Calcium 9.1 mg/dL (7.8-10.44); Carbon Dioxide 16 mmol/L (22-29); Chloride 110 mmol/L (98-107); Estimated GFR-MDRD 76; Glucose 149 mg/dL (70-105); Potassium 3.6 mmol/L (3.5-5.1); Sodium 140 mmol/L (136-145)
[2018-01-11 12:31] LABS: Acetaminophen Less than 6.0 mcg/mL (10.0-30.0); Alcohol Less than 10 mg/dL (Less than 10); Salicylate Less than 8.0 mg/dL (15.0-30.0)
[2018-01-11 12:32] LABS: CKMB 3.8 ng/mL (0-6.6)
[2018-01-11 12:44] LABS: Amphetamine Not Detected (NotDetected); Barbiturates Screen Not Detected (NotDetected); Benzodiazepine Screen Detected (NotDetected); Cocaine Metabolite Screen Not Detected (NotDetected); Medtox Control Line Valid? VALID (VALID); Methadone Not Detected (NotDetected); Methamphetamine Not Detected (NotDetected); Opiate Screen Detected (NotDetected); Oxycodone Screen Not Detected (NotDetected); Phencyclidine (PCP) Not Detected (NotDetected); THC/Cannabinoid Screen Not Detected (NotDetected); Tricyclic Screen Not Detected (NotDetected)
--- NOTE | 2018-01-11 14:11 | RAD ---
PORTABLE AP CHEST X-RAY: 01/11/2018 HISTORY: Chest pain. COMPARISON: 07/10/2016 FINDINGS: The cardiac silhouette is magnified by projection. The pulmonary vasculature is within normal limits . The lungs remain clear. [place] screws overly each humeral head. There has been no interval change from the prior exam. IMPRESSION: No acute cardiopulmonary process. POS: [facility]
== END 2018-01-11 13:35 | disposition short-term general hospital (02) ==
LOC: MADERS 11:44
DX: R07.2 Precordial pain (principal); I10 Essential (primary) hypertension; Z86.73 Personal history of transient ischemic attack (TIA), and cerebral infarction without residual deficits; F17.220 Nicotine dependence, chewing tobacco, uncomplicated; Z79.899 Other long term (current) drug therapy
CPT/HCPCS: 36415; 71045; 80048; 80306; 80307; 82553; 83880; 84484; 85025; 93005; 94760; 96374; 96375; 96376; J2060; J2270

== ENCOUNTER 2018-01-21 00:09 | Emergency (ER) | payer MEDICARE ==
[2018-01-21 01:05] LABS: Bilirubin Negative (Negative); Blood, Urine Large (Negative); Clarity Clear (Clear); Glucose, Urine (Dipstick) Negative (Negative); Leukocyte Negative (Negative); Nitrite Negative (Negative); Protein, Urine (Dipstick) 30 mg/dL (Neg-Trace); Urobilinogen 0.2 mg/dL (0.2-1.0); pH, Urine 5.5 (5.0-9.0)
[2018-01-21 01:15] LABS: Specific Gravity, Urine 1.004 (1.002-1.036)
[2018-01-21 01:16] LABS: Bacteria/HPF None Seen HPF (None Seen); Other Microscopic Description 1+ Amorphous Sed.; RBC/HPF 21-50 HPF (0-3); Squamous Epithelial 0-3 HPF (0-3); WBC/HPF None Seen HPF (0-3)
== END 2018-01-21 01:55 | disposition home or self-care (01) ==
LOC: MADERS 00:09
DX: N40.1 Benign prostatic hyperplasia with lower urinary tract symptoms (principal); R33.8 Other retention of urine; I10 Essential (primary) hypertension; Z86.73 Personal history of transient ischemic attack (TIA), and cerebral infarction without residual deficits; F17.220 Nicotine dependence, chewing tobacco, uncomplicated; Z79.899 Other long term (current) drug therapy
CPT/HCPCS: 51702; 51798; 81003; 81015

== ENCOUNTER 2018-01-21 15:05 | Emergency (ER) | payer MEDICARE | END 2018-01-21 16:10 | disposition home or self-care (01) | LOC: MADERS 15:05 | DX: T83.038A Leakage of other urinary catheter, initial encounter (principal); I10 Essential (primary) hypertension; Z86.73 Personal history of transient ischemic attack (TIA), and cerebral infarction without residual deficits; F17.220 Nicotine dependence, chewing tobacco, uncomplicated; Z79.899 Other long term (current) drug therapy | CPT/HCPCS: 99283 ==

== ENCOUNTER 2018-04-24 09:49 | Emergency (ER) | payer MEDICARE ==
--- NOTE | 2018-04-24 11:32 | RAD ---
LEFT KNEE 4 VIEWS: Date: 04/24/18 HISTORY: Injury. COMPARISON: None. FINDINGS: There is a large joint effusion. Prior ACL graft reconstruction. Mild medial and lateral compartment osteophyte formation, as well as moderate patellofemoral compartment osteophyte formation. IMPRESSION: 1. Large joint effusion greater than would be expected for the degenerative change. A contusion or a cute internal derangement is likely. CT or MRI may be beneficial if clinically warranted. 2. Soft tissue swelling anteriorly and medially may be sequelae of contusion. POS: [facility]
== END 2018-04-24 11:09 | disposition home or self-care (01) ==
LOC: MADERS 09:49
DX: S83.92XA Sprain of unspecified site of left knee, initial encounter (principal); I10 Essential (primary) hypertension; F17.220 Nicotine dependence, chewing tobacco, uncomplicated; Z86.73 Personal history of transient ischemic attack (TIA), and cerebral infarction without residual deficits; Z79.899 Other long term (current) drug therapy; X50.1XXA Overexertion from prolonged static or awkward postures, initial encounter

== ENCOUNTER 2018-06-22 10:09 | Emergency (ER) | payer MEDICARE ==
[2018-06-22] MEDS ORDERED: Multivit, Adult Inj 10 ML VIAL ONE (10:57)
[2018-06-22] MEDS ORDERED: Dextrose 5 %-0.45 % NaCl 1,000 ML ONE (10:57)
[2018-06-22] MEDS ORDERED: Thiamine HCl 200 MG/2 ML VIAL ONE (10:57)
[2018-06-22] MEDS ORDERED: Lidocaine 1% (PF) 30 ML VIAL ONE (11:16)
[2018-06-22] MEDS ORDERED: Lidocaine 2% w/Epinephrine 1:200K 20 ML VIAL ONE (11:17)
--- NOTE | 2018-06-22 11:35 | CT ---
CT BRAIN WITHOUT CONTRAST: Date: 06/22/18 HISTORY: Injury. COMPARISON: None. 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 No hemorrhage. N o new acute infarction is appreciated. No midline shift or mass effect. No hydrocephalus. There is a right posterior occipital laceration with subcutaneous emphysema and soft tissue contusion . The underlying calvarium is intact. IMPRESSION: No acute post-traumatic intracranial sequelae. POS: [facility]
[2018-06-22] MEDS ORDERED: Adacel (T-DAP) 0.5 ML SYRINGE ONE (11:37)
--- NOTE | 2018-06-22 11:50 | CT ---
CT CERVICAL SPINE NONCONTRAST: Date: 06/22/18 HISTORY: Fall. Neck injury. FINDINGS: Vertebral body height and alignment are maintained. Disc space narrowing and osteophytosis at the low er cervical levels. Cervicothoracic junction is intact. Motion artifact is noted at the cervicothorac ic junction, limiting detail. No acute fracture or dislocation. IMPRESSION: Degenerative changes cervical spine. No acute osseous abnormalities are demonstrated. POS: [facility]
== END 2018-06-22 12:00 | disposition home or self-care (01) ==
LOC: MADERS 10:09
DX: S06.0X1A Concussion with loss of consciousness of 30 minutes or less, initial encounter (principal); S01.00XA Unspecified open wound of scalp, initial encounter; I10 Essential (primary) hypertension; F17.220 Nicotine dependence, chewing tobacco, uncomplicated; Z86.73 Personal history of transient ischemic attack (TIA), and cerebral infarction without residual deficits; Z79.899 Other long term (current) drug therapy; W51.XXXA Accidental striking against or bumped into by another person, initial encounter
CPT/HCPCS: 12001; 70450; 72125; 90471; 90715; 96365; J2001; J3411; J7042

== ENCOUNTER 2018-07-16 13:43 | Emergency (ER) | payer MEDICARE ==
--- NOTE | 2018-07-16 14:36 | RAD ---
THREE VIEWS RIGHT ANKLE: Date: 07-16-18 History: Right ankle injury. FINDINGS: The AP projection of the right ankle is obtained with motion artifact which limits osseous detail. Ho wever, on the oblique and lateral views, there is an obliquely oriented and slightly and di splaced fracture involving the distal right fibula with distal fracture fragment displaced posteriorl y and posterolaterally by approximately the width of the cortex. No additional fracture is seen. There is no evidence of dislocation. The ankle mortise is congruent. Subcutaneous soft tissue swelling is seen about the ankle, greater laterally. IMPRESSION: Mildly displaced and fracture involving the distal right fibula with associated subcutaneou s soft tissue swelling. POS: [facility]
--- NOTE | 2018-07-16 14:53 | RAD ---
RIGHT FOOT 3 VIEWS: Date: 07/16/18 HISTORY: Right foot pain. FINDINGS: Lisfranc joint alignment is anatomic. Plantar arch is maintained. Mild osteophytosis. Distal fibular fracture partially visualized on the lateral view. Hallux valgus and bunion deformity. IMPRESSION: 1. Distal right fibular fracture. 2. Hallux valgus and bunion of the right foot. POS: [facility]
== END 2018-07-16 15:51 | disposition home or self-care (01) ==
LOC: MADERS 13:43
DX: S82.831A Other fracture of upper and lower end of right fibula, initial encounter for closed fracture (principal); I10 Essential (primary) hypertension; F17.220 Nicotine dependence, chewing tobacco, uncomplicated; W18.30XA Fall on same level, unspecified, initial encounter

== ENCOUNTER 2018-08-04 08:59 | Emergency (ER) | payer MEDICARE ==
[~2018-08-04 08:59] MED LIST: Sodium Chloride 0.9% 1,000 ML BAG ONE
[2018-08-04] MEDS ORDERED: Iopamidol 370 76% 125 ML VIAL FS ONE (09:05)
[2018-08-04] MEDS ORDERED: Aspirin Chewable 81 MG TAB ONE (09:41)
[2018-08-04] MEDS ORDERED: Lorazepam 2 MG/ML VIAL ONE (09:41)
[2018-08-04] MEDS ORDERED: Enoxaparin Sodium 80 MG/0.8 ML SYRINGE ONE (09:41)
[2018-08-04 09:45] LABS: #Basophils 0.1 thou/uL (0.0-0.2); #Lymphocytes 0.9 thou/uL (1.20-3.40); #Monocytes 1.1 thou/uL (0.11-0.59); #Neutrophils 6.7 thou/uL (1.40-6.50); %Basophils 1.6 % (0.0-1.0); %Eosinophils 0.5 % (0.0-10.0); %Lymphocytes 9.6 % (21.0-51.0); %Neutrophils 76.3 % (42.0-75.0); Hemoglobin 11.8 g/dL (14.0-18.0); Mean Corpuscular HGB CONC 31.7 g/dL (32.0-36.0); Mean Corpuscular Hemoglobin 26.6 pg (27.0-31.0); Mean Corpuscular Volume 84.1 fL (78.0-98.0); Mean Platelet Volume 6.9 fL (7.4-10.4); Platelet Count 259 thou/uL (130-400); RBC Distribution Width 17.6 % (11.5-14.5); Red Blood Cell (RBC) Count 4.43 mill/uL (4.70-6.10); White Blood Cell (WBC) Count 8.8 thou/uL (4.8-10.8)
[2018-08-04 09:52] LABS: INR-International Normal Ratio 1.1; PTT 29.1 SEC (22.9-36.1); Prothrombin Time 14.6 SEC (12.0-14.7)
[2018-08-04 09:59] LABS: D-Dimer Test 0.99 *mcg/mL (0.27-0.43)
[2018-08-04 10:04] LABS: ALT (SGPT) 40 U/L (8-55); AST (SGOT) 48 U/L (5-34); Albumin 4.1 g/dL (3.5-5.0); Alkaline Phosphatase 104 U/L (40-150); Anion Gap 15 mmol/L (10-20); BUN (Urea Nitrogen) 8 mg/dL (8.4-25.7); Calc. Creatinine Clearance 0 mL/min (70-130); Calcium 8.6 mg/dL (7.8-10.44); Carbon Dioxide 20 mmol/L (22-29); Chloride 109 mmol/L (98-107); Estimated GFR-MDRD 78; Globulin 3.1 g/dL (2.4-3.5); Glucose 123 mg/dL (70-105); Potassium 3.1 mmol/L (3.5-5.1); Protein, Total 7.2 g/dL (6.0-8.3)
[2018-08-04 10:20] LABS: Sodium 141 mmol/L (136-145)
[2018-08-04] MEDS ORDERED: Thiamine HCl 200 MG/2 ML VIAL ONE (10:20)
[2018-08-04 10:21] LABS: CKMB 2.9 ng/mL (0-6.6)
[2018-08-04] MEDS ORDERED: Multivit, Adult Inj 10 ML VIAL ONE (10:21)
[2018-08-04] MEDS ORDERED: NS 0.9% w/ 40 MEQ KCL 1,000 ML IV ONE (10:21)
[2018-08-04 10:28] LABS: Bilirubin Negative (Negative); Blood, Urine Negative (Negative); Clarity Clear (Clear); Glucose, Urine (Dipstick) Negative (Negative); Leukocyte Negative (Negative); Nitrite Negative (Negative); Protein, Urine (Dipstick) 30 mg/dL (Neg-Trace); Specific Gravity, Urine 1.015 (1.005-1.030); Urobilinogen 0.2 mg/dL (0.2-1.0); pH, Urine 8.5 (5.0-9.0)
--- NOTE | 2018-08-04 10:29 | RAD ---
RIGHT LEG 2 VIEWS: Date: 08/04/18 HISTORY: Injury, right leg pain. FINDINGS/IMPRESSION: There is a fracture involving the distal fibula without significant displacement. POS: [facility]
--- NOTE | 2018-08-04 10:33 | RAD ---
CHEST ONE VIEW: History: Chest pain. Comparison: 01-11-18 FINDINGS: Lungs are clear. No pneumothorax or effusion. Cardiac silhouette and mediastinal contours are within normal limits. Multiple pins and anchor of the right humerus. IMPRESSION: No acute intrathoracic abnormality. POS: [facility]
[2018-08-04 10:35] LABS: Bacteria/HPF Rare-Few HPF (None Seen); RBC/HPF 0-3 HPF (0-3); Squamous Epithelial 0-3 HPF (0-3); WBC/HPF 0-3 HPF (0-3)
[2018-08-04 10:38] LABS: Amphetamine Not Detected (NotDetected); Barbiturates Screen Not Detected (NotDetected); Benzodiazepine Screen Not Detected (NotDetected); Cocaine Metabolite Screen Not Detected (NotDetected); Medtox Control Line Valid? VALID (VALID); Methadone Not Detected (NotDetected); Methamphetamine Not Detected (NotDetected); Opiate Screen Detected (NotDetected); Oxycodone Screen Not Detected (NotDetected); Phencyclidine (PCP) Not Detected (NotDetected); THC/Cannabinoid Screen Not Detected (NotDetected); Tricyclic Screen Not Detected (NotDetected)
[2018-08-04] MEDS ORDERED: Metoprolol Tartrate 5 MG/5 ML VIAL ONE ×2 (11:22→12:02)
--- NOTE | 2018-08-04 13:06 | CT ---
CT ANGIOGRAM CHEST WITH CONTRAST: HISTORY: Tachycardia. COMPARISON: Chest radiograph same day. FINDINGS: CT angiogram chest performed after the intravenous administration of contrast. Three-D rendering is provided. There are multiple hypodense nodules inferior right lobe of the thyroid for which nonemergent ultraso und may be performed if clinically warranted. Evaluation for distal embolism is limited due to the delayed phase of contrast. No proximal segmenta l or pulmonary arterial filling defects. Pulmonary trunk size is normal. The liver is small and cirrhotic. Large hypodensity is present at the expected location of the super ior pole of the right kidney incompletely evaluated. No mediastinal adenopathy. Lungs are clear. No pleural effusion. IMPRESSION: 1. No proximal segmental pulmonary arterial filling defect. 2. Incompletely evaluated hypodensity superior pole right kidney. Nonemergent ultrasound recommende d. 3. Hepatic cirrhosis. 4. Multiple healing right anterior rib fractures. 5. Incompletely evaluated right posterior rib neck 12th intermedullary area of sclerosis. This may reflect a bone island and is unchanged from the 01/11/2018 study. 6. Multiple thyroid hypodensities for which nonemergent ultrasound may be performed. POS: [facility]
== END 2018-08-04 13:00 | disposition short-term general hospital (02) ==
LOC: MADERS 08:59
DX: I48.91 Unspecified atrial fibrillation (principal); R79.89 Other specified abnormal findings of blood chemistry; I10 Essential (primary) hypertension; I72.9 Aneurysm of unspecified site; F17.220 Nicotine dependence, chewing tobacco, uncomplicated; Z79.899 Other long term (current) drug therapy
CPT/HCPCS: 71045; 71275; 80053; 80306; 80307; 81003; 81015; 82553; 83605; 83880; 84443; 84484; 85025; 85379; 85610; 85730; 93005; 94760; 96361; 96372; 96374; 96375; 96376; J1650; J2060; J3411; J3480; J7050; Q9967

== ENCOUNTER 2020-09-06 09:00 | Outpatient (CLI) | payer MEDICARE ==
[2020-09-06 09:31] LABS: ALT (SGPT) 31 U/L (8-55); AST (SGOT) 31 U/L (5-34); Albumin 3.9 g/dL (3.5-5.0); Alkaline Phosphatase 93 U/L (40-110); Anion Gap 12 mmol/L (10-20); BUN (Urea Nitrogen) 9 mg/dL (8.4-25.7); Bilirubin, Total 0.5 mg/dL (0.2-1.2); Calc. Creatinine Clearance 0 mL/min (70-130); Calcium 8.9 mg/dL (7.8-10.44); Carbon Dioxide 21 mmol/L (22-29); Cardiac Risk 2.4 (Less than 4.5); Chloride 113 mmol/L (98-107); Cholesterol 120 mg/dl (< 200 Desired); Globulin 2.9 g/dL (2.4-3.5); Glucose 109 mg/dL (70-105); HDL Cholesterol 49 mg/dL (>60 Neg Risk); LDL Cholesterol, Calculated 58 mg/dL; Potassium 3.5 mmol/L (3.5-5.1); Protein, Total 6.8 g/dL (6.0-8.3); Sodium 142 mmol/L (136-145); Triglycerides 63 mg/dL (Less than 150)
== END 2020-09-06 09:01 | disposition home or self-care (01) ==
LOC: MADLAB 09:00
PROVIDERS: ATTEND Family Medicine
DX: N40.0 Benign prostatic hyperplasia without lower urinary tract symptoms (principal); I10 Essential (primary) hypertension; Z12.5 Encounter for screening for malignant neoplasm of prostate
CPT/HCPCS: 36415; 80053; 80061; G0103

== ENCOUNTER 2020-12-22 11:51 | Emergency (ER) | payer SELFPAY ==
[2020-12-22 13:26] LABS: Bilirubin Negative (Negative); Blood, Urine Negative (Negative); Clarity Clear (Clear); Glucose, Urine (Dipstick) Negative (Negative); Ketone, Urine Negative (Negative); Leukocyte Negative (Negative); Nitrite Negative (Negative); Protein, Urine (Dipstick) Negative (Neg-Trace); Urobilinogen 0.2 mg/dL (Less than 2); pH, Urine 6.5 (5.0-9.0)
== END 2020-12-22 14:20 | disposition home or self-care (01) ==
LOC: MADERS 11:51
DX: R33.9 Retention of urine, unspecified (principal); Z71.6 Tobacco abuse counseling; I10 Essential (primary) hypertension; N40.0 Benign prostatic hyperplasia without lower urinary tract symptoms; F17.220 Nicotine dependence, chewing tobacco, uncomplicated; Z86.73 Personal history of transient ischemic attack (TIA), and cerebral infarction without residual deficits; Z79.899 Other long term (current) drug therapy
CPT/HCPCS: 51702; 81003